=== PATIENT | female | born 1960 | race Caucasian/White ===

== ENCOUNTER 2017-01-30 20:40 | Emergency (ER) | payer OTHER, BC ==
[2017-01-30 20:52] VITALS: TEMP 97.5; O2SAT 100
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
[2017-01-30 23:37] VITALS: BP 132/78; PULSE 78; RESP 20
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
== END 2017-01-30 23:37 | disposition home or self-care (01) ==
LOC: C.ER 20:40
DX: S13.4XXA Sprain of ligaments of cervical spine, initial encounter (principal); S42.401A Unspecified fracture of lower end of right humerus, initial encounter for closed fracture; V59.9XXA Occupant (driver) (passenger) of pick-up truck or van injured in unspecified traffic accident, initial encounter; E78.00 Pure hypercholesterolemia, unspecified; I10 Essential (primary) hypertension; I25.10 Atherosclerotic heart disease of native coronary artery without angina pectoris